=== PATIENT | female | born 1985 | race Two or more races ===

== ENCOUNTER 2022-05-02 09:30 | Emergency (ER) | payer OTHER ==
[~2022-05-02] VITALS: Ht 154.9 cm; Wt 63.5 kg
--- NOTE | 2022-05-02 09:45 | NUR ---
[employer] FOR OTB HEROIN WITHDRAWAL, LAST TAKEN LAST NIGHT, C/O NAUSEA. THE PATIENT IS ALERT AND ORIENTED X3. IN ROOM AIR AND DENIES SOB. RESPIRATION REGULAR ADN UNLABORED. [employer] OFFICERS AT THE [facility].
[2022-05-02] MEDS ORDERED: ONDANSETRON 4 MG TAB.RAPDIS ONE (09:58)
[2022-05-02] MEDS ORDERED: ONDANSETRON 4 MG TAB.RAPDIS SL ONE (10:00)
[2022-05-02] MEDS ORDERED: NALO4SPR BNOSTRILS (10:04)
[2022-05-02] MEDS ORDERED: ONDA4TAB5 PO (10:04)
--- NOTE | 2022-05-02 10:15 | NUR ---
Patient discharged to home in stable condition with [employer] officers. Written and verbal after care instructions given. The patient and the officers verbalized understanding of instruction.
[2022-05-02 10:16] VITALS: BP 130/75
== END 2022-05-02 10:17 | disposition home or self-care (01) ==
LOC: ER 09:38
DX: F11.10 Opioid abuse, uncomplicated (principal)
CPT/HCPCS: 99283; Q0162

== ENCOUNTER 2025-04-22 07:24 | Emergency (ER) | payer MEDICAID, OTHER ==
[~2025-04-22] VITALS: Ht 154.9 cm; Wt 68.0 kg
[~2025-04-22 07:24] MED LIST: NALO4SPR BNOSTRILS; ONDA4TAB5 PO
[2025-04-22] MEDS ORDERED: ACETAMINOPHEN ES 500 MG TABLET ONE (07:45)
[2025-04-22] MEDS: ACETAMINOPHEN 325 MG TABLET PO ONE (07:59)
[2025-04-22 08:13] LABS: PREGNANCY TEST URINE QUAL NEGATIVE (NEGATIVE)
[2025-04-22 08:17] LABS: PLATELET COUNT (AUTO) 324 K/uL (150-450); RED BLOOD CELL COUNT(AUTO) 4.45 MIL/uL (4.0-5.2); RED CELL DISTRIBUTION WIDTH 13.4 % (11.5-15.0); WHITE BLOOD COUNT (AUTO) 11.3 K/uL (4.3-11.0)
[2025-04-22 08:18] LABS: CALCIUM, SERUM 9.2 mg/dL (8.5-10.1); CREATININE 0.7 mg/dL (0.6-1.3); SODIUM SERUM 135.0 mmol/L (136-145); UREA NITROGEN, BLOOD 11.0 mg/dL (7-18)
[2025-04-22 08:26] LABS: ASPARTATE AMINOTRANSFERASE 13.0 U/L (15-37); TOTAL PROTEIN, SERUM 7.3 g/dL (6.4-8.2)
[2025-04-22] MEDS ORDERED: POTASSIUM CHLORIDE 20 MEQ TAB.PRT.SR PO ONE (08:51)
[2025-04-22] MEDS: POTASSIUM CHLORIDE 20 MEQ TAB.PRT.SR PO ONE (08:54)
[2025-04-22] MEDS ORDERED: KETOROLAC TROMETHAMINE INJ 30 MG/ML VIAL ONE (09:47)
[2025-04-22] MEDS: KETOROLAC TROMETHAMINE INJ 30 MG/ML VIAL IM ONE (09:52)
[2025-04-22 10:03] VITALS: BP 100/69; TEMP 98.6; O2SAT 99
== END 2025-04-22 10:03 | disposition home or self-care (01) ==
LOC: ER 07:28
DX: S00.83XA Contusion of other part of head, initial encounter (principal); R11.2 Nausea with vomiting, unspecified; M54.50 Low back pain, unspecified; F19.10 Other psychoactive substance abuse, uncomplicated; Y08.89XA Assault by other specified means, initial encounter; Y93.89 Activity, other specified; Y92.89 Other specified places as the place of occurrence of the external cause; Y99.8 Other external cause status
CPT/HCPCS: 99285; 70450; 96372; 85025; 80048; 83690; 80076; 36415; 84703 ×2; J1885